=== PATIENT | male | born 1985 | race Caucasian/White ===

== ENCOUNTER 2016-11-19 17:02 | Emergency (ER) | payer OTHER ==
[2016-11-19] MEDS ORDERED: HYDROcod/ACETAM 5/325 MG TABLET PO STA (17:17)
[2016-11-19] MEDS ORDERED: ONDANSETRON ODT 4 MG TABLET TL STA (17:17)
[2016-11-19] MEDS ORDERED: HYDROcod/ACETAM 5/325 MG TABLET ONE (17:19)
[2016-11-19] MEDS ORDERED: ONDANSETRON ODT 4 MG TABLET ONE (17:19)
== END 2016-11-19 18:55 | disposition home or self-care (01) ==
DX: S62.515A Nondisplaced fracture of proximal phalanx of left thumb, initial encounter for closed fracture (principal); W23.1XXA Caught, crushed, jammed, or pinched between stationary objects, initial encounter; R03.0 Elevated blood-pressure reading, without diagnosis of hypertension
CPT/HCPCS: 29125; 73110; 73130; 99283; A9270; Q0162